=== PATIENT | female | born 1970 ===

== ENCOUNTER 2022-07-18 16:18 | Day surgery (SDC) | payer MEDICAID ==
[~2022-07-18] VITALS: Ht 172.7 cm; Wt 86.8 kg
[2022-07-18] VITALS (11 sets, daily range): BP systolic 101–138; BP diastolic 56–69
[2022-07-18 16:46] LABS: CLARITY,URINE CLEAR (Clear); COLOR,URINE YELLOW (Yellow); GLUCOSE, URINE NEGATIVE (Neg); KETONES,URINE NEGATIVE (Neg); LEUKOCYTE ESTERASE ,URINE NEGATIVE (Neg); NITRITES, URINE NEGATIVE (Neg); OCCULT BLOOD,URINE NEGATIVE (Neg); PH,URINE 6.5 (4.8-8.0); PROTEIN,URINE NEGATIVE (Neg); UROBILINOGEN,URINE 0.2 E.U/dL (0.2-1.0)
[2022-07-18 16:53] LABS: UA COLLECTION TYPE CLN CATCH MIDSTREAM
[2022-07-18 16:56] LABS: BASOPHILS # (AUTO) 0.1 X10'3 (0-0.2); BASOPHILS % (AUTO) 0.7 % (0-1); EOSINOPHILS # (AUTO) 0.2 X10'3 (0-0.9); EOSINOPHILS % (AUTO) 2.5 % (0-6); HEMATOCRIT 40.5 % (35.0-45.0); HEMOGLOBIN 13.5 g/dl (12.0-16.0); LYMPHOCYTES # (AUTO) 1.3 X10'3 (1.1-4.8); LYMPHOCYTES % (AUTO) 16.7 % (21-51); MEAN CORPUSCULAR HEMOGLOBIN 30.5 PG (27.0-31.0); MEAN CORPUSCULAR HGB CONC 33.4 g/dL (33.0-36.5); MEAN CORPUSCULAR VOLUME 91.4 FL (78-98); MEAN PLATELET VOLUME 7.4 FL (7.4-10.4); MONOCYTES # (AUTO) 0.5 X10'3 (0-0.9); MONOCYTES % (AUTO) 6.1 % (2-12); NEUTROPHILS # (AUTO) 5.8 X10'3 (1.8-7.7); PLATELET COUNT 373 X10'3 (140-440); RED BLOOD COUNT 4.43 X10'6 (4.20-5.60); RED CELL DISTRIBUTION WIDTH 14.2 % (11.5-14.5); WHITE BLOOD COUNT 7.8 X10'3 (4.5-11.0)
[2022-07-18 17:03] LABS: ALANINE AMINOTRANSFERASE 37 U/L (12-78); ALKALINE PHOSPHATASE 84 IU/L (46-116); ANION GAP 9 (8-16); ASPARTATE AMINO TRANSFERASE 26 U/L (10-37); BILIRUBIN,TOTAL 0.3 MG/DL (0.1-1.0); BLOOD UREA NITROGEN 15 MG/DL (7-18); BUN/CREATININE RATIO 14.7 (10.0-20.0); CALCIUM 9.6 MG/DL (8.5-10.1); CHLORIDE 106 MMOL/L (99-107); CREATININE 1.02 MG/DL (0.40-0.90); GLUCOSE 99 MG/DL (70-104); POTASSIUM 4.2 MMOL/L (3.5-5.1); SODIUM 145 MMOL/L (135-145); TOTAL CARBON DIOXIDE 29.8 MMOL/L (24-32); TOTAL PROTEIN 8.1 G/DL (6.4-8.2); eGFR 57 ML/MIN
[2022-07-18] MEDS ORDERED: proCHLORperazine 10 MG/2 ml inj IV PRN (17:05)
[2022-07-18] MEDS ORDERED: ringers solution, lacted 1,000 ML IV SCH ×2 (17:05→17:10)
[2022-07-18] MEDS ORDERED: morphine 2 MG/ML inj. syringe IV PRN (17:05)
[2022-07-18] MEDS ORDERED: morphine 4 MG/ML inj SYRINge IV PRN (17:05)
[2022-07-18] MEDS ORDERED: meperidine/PF 25mg/ml syringe IV PRN ×2 (17:05)
[2022-07-18] MEDS ORDERED: ondansetron/PF 4mg/2ml inj IV PRN (17:05)
[2022-07-18] MEDS ORDERED: ringers solution, lacted 1,000 ML IV ONE (17:05)
--- NOTE | 2022-07-18 17:29 | NUR ---
Pt placed in room to change into gown started IV to left hand SL 20G w/o complication. Pt signed surgery consent. Pt taken to OR via gurney and OR staff. NAD noted. RR even and non-labored.
[2022-07-18] MEDS ORDERED: dexamethasone sod phosphate 10mg/ml inj ONE (18:18)
[2022-07-18] MEDS ORDERED: sevoflurane 250ml liquid IH ONE (18:18)
[2022-07-18] MEDS ORDERED: LIDOcaine 1% 30ml preserv. free vial ONE (18:19)
[2022-07-18] MEDS ORDERED: BUPIVAcaine/PF 2.5 mg/ml (0.25%) 30ml vial ONE (18:19)
[2022-07-18] MEDS ORDERED: fentaNYL/PF 50MCG/1 ML 2ML syringe ONE (18:29)
[2022-07-18] MEDS ORDERED: midazolam 1 mg/ML 2ml injection ONE (18:30)
[2022-07-18] MEDS ORDERED: rocuronium 10mg/ml inj IV ONE (18:35)
[2022-07-18] MEDS ORDERED: propofol inj 20 ML IV ONE (18:37)
[2022-07-18] MEDS ORDERED: LIDOcaine 2% (20mg/ml) 5ml vial ONE (18:37)
[2022-07-18] MEDS ORDERED: ceFOXitin 1000 MG inj ONE (18:44)
[2022-07-18] MEDS ORDERED: ondansetron/PF 4mg/2ml inj ONE (18:44)
[2022-07-18] MEDS ORDERED: LIDOcaine 1% 30ml preserv. free vial IJ ONE (18:59)
[2022-07-18] MEDS ORDERED: BUPIVAcaine/PF 2.5 mg/ml (0.25%) 30ml vial IJ ONE (18:59)
[2022-07-18] MEDS ORDERED: neostigmine methylsulfate 1 MG/ML 10ml vial ONE (19:25)
[2022-07-18] MEDS ORDERED: glycopyrrolate 0.2mg/ml inj ONE (19:25)
--- NOTE | 2022-07-18 19:34 | NUR ---
Received from OR via , accompanied by Anesthesiologist REGI AND OR NURSE and report given by Anesthesiolgist. PT IS EMOTIONAL DUE TO MEDICATIONS FOR SEDATION; ABLE TO FOLLOW COMMANDS AND BE CONSOLED. 3 RT SIDE LAP SITES WITH 2/2'S, DERMABOND AND TEGADERM; CDI. LT SIDE PACKING SITE WITH 2X2'S AND TEGADERM; CDI. 20G TO LT HAND. VSS Addendum: 07/18/22 at 2008 by Corrie Oconnor RN Amended: Links added.
[2022-07-18] MEDS: meperidine/PF 25mg/ml syringe IV PRN ×2 (19:48→20:37)
[2022-07-18] MEDS ORDERED: oxyCODONE/APAP 10/325mg tablet PO ONE (20:00)
--- NOTE | 2022-07-18 21:24 | NUR ---
I HAVE REVIEWED D/C INSTRUCTIONS WITH PATIENT AND THEY HAVE VERBALIZED UNDERSTANDING OF INSTRUCTIONS. PATIENT D/C HOME WITH ALL BELONGINGS AND FAMILY GAVE TRANSPORT Addendum: 07/18/22 at 2131 by Corrie Oconnor RN Amended: Links added.
[2022-07-19] MEDS ORDERED: ceFOXitin inj 1,000 MG in normal saline 100ml IV soln 100 ML IV SCH ×2
[2022-07-19] MEDS ORDERED: famotidine 20mg tablet PO ONE (06:00)
== END 2022-07-18 21:24 | disposition home or self-care (01) ==
LOC: ER 16:20 → SSTAY O 17:12
PROVIDERS: ATTEND Surgery
DX: K95.01 Infection due to gastric band procedure (principal); G43.909 Migraine, unspecified, not intractable, without status migrainosus; Z79.899 Other long term (current) drug therapy; Z98.890 Other specified postprocedural states; Y83.8 Other surgical procedures as the cause of abnormal reaction of the patient, or of later complication, without mention of misadventure at the time of the procedure
CPT/HCPCS: 36415; 43774; 80053; 81003; 85025; 99285; A6258; J0694; J1100; J2175; J2250; J2405; J2704; J2710; J3010; J3490; J7030; J7120; Z7506; Z7508; Z7512; A4215; A4618; A6449; A7000